=== PATIENT | male | born 1995 | race Caucasian/White ===

== ENCOUNTER 2024-02-06 10:55 | Emergency (ER) | payer MEDICAID ==
[~2024-02-06] VITALS: Ht 177.8 cm; Wt 84.0 kg
[~2024-02-06 10:55] MED LIST: ACYC800T5; B50
[2024-02-06 10:58] VITALS: O2SAT 98
[2024-02-06] MEDS: ACETAMINOPHEN 325MG TABLET PO ONE (11:43)
[2024-02-06 14:08] VITALS: BP 138/88; PULSE 100; RESP 16; TEMP 98.3
== END 2024-02-06 14:08 | disposition home or self-care (01) ==
LOC: ER 10:55
DX: S09.8XXA Other specified injuries of head, initial encounter (principal); V98.8XXA Other specified transport accidents, initial encounter; Y93.89 Activity, other specified; Y92.89 Other specified places as the place of occurrence of the external cause; Y99.8 Other external cause status
CPT/HCPCS: 71045; 99284